=== PATIENT | female | born 1990 | race Caucasian/White ===

== ENCOUNTER 2017-07-12 04:40 | Emergency (ER) | payer OTHER ==
[2017-07-12] MEDS ORDERED: NS 1,000 ML IV ONE (04:51)
--- NOTE | 2017-07-12 04:51 | EDPHY ---
H & P Stated Complaint: RLQ abd pain started at 0300 Time Seen by Provider: 07/12/17 04:51 HPI/ROS: HPI CHIEF COMPLAINT: Right-sided abdominal pain HISTORY OF PRESENT ILLNESS: Patient is a 27-year-old female denies any significant medical history she presents emergency room with right-sided abdominal pain this woke her up from sleep around 3:00 a.m.. States she had the urge to go urinate she urinated and then felt like she had urinate again. She had sudden-onset severe sharp stabbing pain in her right lower quadrant. She states it does radiate to right CVA little bit. She had nausea with 1 episode of vomiting. She also states she had some watery diarrhea. 1 episode. Denies any chest pain or shortness of breath. Denies fever. Denies being . Current pain level 8/10. Right-sided. Past Medical History: Denies medical history Past Surgical History: Denies surgical history Social History: Denies daily use drugs alcohol tobacco. Family History: Noncontributory ROS REVIEW OF SYSTEMS: A comprehensive 10 point review of systems is otherwise negative aside from elements mentioned in the history of present illness. Exam Constitutional pre appears nontoxic triage nursing summary reviewed, vital signs reviewed, awake/alert. Eyes normal conjunctivae and sclera, EOMI, PERRLA. HENT normal inspection, atraumatic, moist mucus membranes, no epistaxis, neck supple/ no meningismus, no raccoon eyes. Respiratory clear to auscultation bilaterally, normal breath sounds, no respiratory distress, no wheezing. Cardiovascular rate normal, regular rhythm, no murmur, no edema, distal pulses normal. Gastrointestinal mild tender palpation right lower quadrant no peritoneal signs , no adnexal pain, no rebound, no guarding, normal bowel sounds, no distension, no pulsatile mass. Genitourinary mild CVA tenderness on the right side Musculoskeletal no midline vertebral tenderness, full range of motion, no calf swelling, no tenderness of extremities, no meningismus, good pulses, neurovascularly intact. Skin pink, warm, & dry, no rash, skin atraumatic. Neurologic awake, alert and oriented x 3, AAOx3, moves all 4 extremities equally, motor intact, sensory intact, CN II-XII intact, normal cerebellar, normal vision, normal speech. Psychiatric normal mood/affect. Heme/Lymph/Immune no lymphadenopathy. Differential diagnosis includes but is not limited to and in no particular order : Bowel obstruction, appendicitis, gallbladder disease, diverticulitis, colitis , enteritis, perforated viscus, gastritis, GERD, esophagitis, urinary tract infection, pyelonephritis, kidney stones Medical Decision Making: Plan for this patient IV establishment IV fluid bolus , IV Dilaudid 1 mg for pain control, IV Zofran 4 mg for nausea, IV fluids, basic blood work, CT scan abdomen pelvis with IV contrast rule out appendicitis versus kidney stone. Re-evaluation: CT scan abdomen pelvis with IV contrast shows right-sided UVJ stone. Hydronephrosis present. Called to me by Dr. Batres. 0607: Patient re-evaluated has some ongoing pain. 15 mg IV Toradol ordered. Urinalysis still pending. 0629: Patient re-evaluated she is much more comfortable nail. She received 1 L normal saline, additionally received Toradol, and IV Dilaudid. Pain well controlled. She is no longer vomiting. Pending a urinalysis. CT scan shows right-sided small 3 mm UVJ stone. Return precautions discussed with her she understands return emergency room she develops worsening abdominal pain fever vomiting flank pain questions or concerns. Understands drink lots of fluids stay well-hydrated Return if worsening pain fever vomiting Urology referral given. Source: Patient - Personal History LMP (Females 10-55): 15-21 Days Ago Current Tetanus/Diphtheria Vaccine: No Current Tetanus Diphtheria and Acellular Pertussis (TDAP): No - Medical/Surgical History Hx Asthma: No Hx Chronic Respiratory Disease: No Hx Diabetes: No Hx Cardiac Disease: No Hx Renal Disease: No Hx Cirrhosis: No Hx Alcoholism: No Hx HIV/AIDS: No Hx Splenectomy or Spleen Trauma: No Other PMH: left elbow surgery - Social History Smoking Status: Never smoked Constitutional: Initial Vital Signs Temperature (C) 36.7 C 07/12/17 04:41 Heart Rate 75 07/12/17 04:41 Respiratory Rate 18 07/12/17 04:41 Blood Pressure 95/58 L 07/12/17 04:41 O2 Sat (%) 99 07/12/17 04:41 O2 (L/minute) 2 Allergies/Adverse Reactions: acetaminophen [From Vicodin] Allergy (Verified 07/12/17 04:45) hydrocodone [From Vicodin] Allergy (Verified 07/12/17 04:45) Home Medications: Medication Instructions Recorded Ondansetron HCl [Zofran] 4 mg PO Q4-6PRN PRN #10 tablet 07/12/17 Tamsulosin HCl [Flomax] 0.4 mg PO DAILY #10 cap 07/12/17 oxyCODONE HCL/ACETAMINOPHEN 1 each PO BID #10 tablet 07/12/17 [Percocet 5-325 mg Tablet] Medical Decision Making - Data Points Laboratory Results: Laboratory Results 07/12/17 04:58 07/12/17 04:58 07/12/17 07/12/17 07/12/17 06:15 05:00 04:58 WBC RBC Hgb POC Hgb 12.9 gm/dL gm/dL (12.6-16.3) Hct POC Hct 38 % % (38-47) MCV MCH MCHC RDW Plt Count MPV Neut % (Auto) Lymph % (Auto) [place] % (Auto) Eos % (Auto) Baso % (Auto) Nucleat RBC Rel Count Absolute Neuts (auto) Absolute Lymphs (auto) Absolute Monos (auto) Absolute Eos (auto) Absolute Basos (auto) Absolute Nucleated RBC Immature Gran % Immature Gran # VBG Lactic Acid POC Sodium 141 mEq/L mEq/L (135-145) Sodium POC Potassium 3.7 mEq/L mEq/L (3.3-5.0) Potassium POC Chloride 103 mEq/L mEq/L (97-110) Chloride Carbon Dioxide Anion Gap POC BUN 7 mg/dL mg/dL (7-23) BUN Creatinine POC Creatinine 0.7 mg/dL mg/dL (0.6-1.0) Estimated GFR Glucose POC Glucose 132 mg/dL H mg/dL (70-100) Calcium Total Bilirubin Conjugated Bilirubin Unconjugated Bilirubin AST ALT Alkaline Phosphatase Total Protein Albumin Lipase Beta HCG, Qual NEGATIVE Urine Color Pending Urine Appearance Pending Urine pH Pending Ur Specific [place] Pending Urine Protein Pending Urine Ketones Pending Urine Blood Pending Urine Nitrate Pending Urine Bilirubin Pending Urine Urobilinogen Pending Ur Leukocyte Esterase Pending Urine Glucose Pending 07/12/17 07/12/17 07/12/17 04:58 04:58 04:55 WBC 6.57 10^3/uL 10^3/uL (3.80-9.50) RBC 4.10 10^6/uL L 10^6/uL (4.18-5.33) Hgb 13.3 g/dL g/dL (12.6-16.3) POC Hgb Hct 37.6 % L % (38.0-47.0) POC Hct MCV 91.7 fL fL (81.5-99.8) MCH 32.4 pg pg (27.9-34.1) MCHC 35.4 g/dL g/dL (32.4-36.7) RDW 11.3 % L % (11.5-15.2) Plt Count 209 10^3/uL 10^3/uL (150-400) MPV 9.1 fL fL (8.7-11.7) Neut % (Auto) 55.5 % % (39.3-74.2) Lymph % (Auto) 38.5 % % (15.0-45.0) [place] % (Auto) 4.6 % % (4.5-13.0) Eos % (Auto) 0.6 % % (0.6-7.6) Baso % (Auto) 0.5 % % (0.3-1.7) Nucleat RBC Rel Count 0.0 % % (0.0-0.2) Absolute Neuts (auto) 3.65 10^3/uL 10^3/uL (1.70-6.50) Absolute Lymphs (auto) 2.53 10^3/uL 10^3/uL (1.00-3.00) Absolute Monos (auto) 0.30 10^3/uL 10^3/uL (0.30-0.80) Absolute Eos (auto) 0.04 10^3/uL 10^3/uL (0.03-0.40) Absolute Basos (auto) 0.03 10^3/uL 10^3/uL (0.02-0.10) Absolute Nucleated RBC 0.00 10^3/uL 10^3/uL (0-0.01) Immature Gran % 0.3 % % (0.0-1.1) Immature Gran # 0.02 10^3/uL 10^3/uL (0.00-0.10) VBG Lactic Acid 1.5 mmol/L mmol/L (0.7-2.1) POC Sodium Sodium 141 mEq/L mEq/L (135-145) POC Potassium Potassium 4.0 mEq/L mEq/L (3.5-5.2) POC Chloride Chloride 105 mEq/L mEq/L (97-110) Carbon Dioxide 24 mEq/l mEq/l (22-31) Anion Gap 12 mEq/L mEq/L (8-16) POC BUN BUN 9 mg/dL mg/dL (7-23) Creatinine 0.8 mg/dL mg/dL (0.6-1.0) POC Creatinine Estimated GFR > 60 Glucose 123 mg/dL H mg/dL (70-100) POC Glucose Calcium 9.0 mg/dL mg/dL (8.5-10.4) Total Bilirubin 0.9 mg/dL mg/dL (0.1-1.4) Conjugated Bilirubin 0.5 mg/dL mg/dL (0.0-0.5) Unconjugated Bilirubin 0.4 mg/dL mg/dL (0.0-1.1) AST 21 IU/L IU/L (14-46) ALT 34 IU/L IU/L (9-52) Alkaline Phosphatase 45 IU/L IU/L (38-126) Total Protein 6.9 g/dL g/dL (6.3-8.2) Albumin 4.0 g/dL g/dL (3.5-5.0) Lipase 27 IU/L IU/L (23-300) Beta HCG, Qual Urine Color Urine Appearance Urine pH Ur Specific [place] Urine Protein Urine Ketones Urine Blood Urine Nitrate Urine Bilirubin Urine Urobilinogen Ur Leukocyte Esterase Urine Glucose Medications Given: Discontinued Medications Hydromorphone HCl (Dilaudid) 1 mg IVP EDNOW ONE Stop: 07/12/17 04:56 Last Admin: 07/12/17 05:06 Dose: 1 mg Sodium Chloride (Ns) 1,000 mls @ 0 mls/hr IV EDNOW ONE; Wide Open PRN Reason: Protocol Stop: 07/12/17 04:52 Last Admin: 07/12/17 05:05 Dose: 1,000 mls Ketorolac Tromethamine (Toradol) 15 mg IVP EDNOW ONE Stop: 07/12/17 06:00 Last Admin: 07/12/17 06:01 Dose: 15 mg Ondansetron HCl (Zofran) 4 mg IVP EDNOW ONE Stop: 07/12/17 04:56 Last Admin: 07/12/17 05:06 Dose: 4 mg Point of Care Test Results: 07/12/17 05:00 POC Sodium 141 POC Potassium 3.7 POC Chloride 103 POC BUN 7 POC Creatinine 0.7 POC Glucose 132 H Departure - Departure Disposition: Home, Routine, Self-Care Clinical Impression: Kidney stone Condition: Good Instructions: Kidney Stones (ED), Renal Colic (ED), Flank Pain (ED) Additional Instructions: 1. Drink lots of fluids stay well-hydrated. 2. Return emergency room if develops worsening abdominal pain flank pain fever vomiting. Referrals: BLANCA REES [Primary Care Provider] - As per Instructions Master Becker MD [Medical Doctor] - As per Instructions Prescriptions: Ondansetron HCl [Zofran] 4 mg PO Q4-6PRN PRN #10 tablet PRN Reason: Nausea/Vomiting, Use 1st oxyCODONE HCL/ACETAMINOPHEN [Percocet 5-325 mg Tablet] 1 each PO BID #10 tablet Tamsulosin HCl [Flomax] 0.4 mg PO DAILY #10 cap
[2017-07-12] MEDS ORDERED: HYDROmorphONE/DILAUDID 2 MG/ML INJ IVP ONE (04:55)
[2017-07-12] MEDS ORDERED: ONDANSETRON 4 MG/2 ML VIAL IVP ONE (04:55)
[2017-07-12 05:06] LABS: PLATELET COUNT 209 10^3/uL (150-400)
[2017-07-12] MEDS ORDERED: IOPAMIDOL (ISOVUE-300) 100 ML BTL ONE (05:29)
[2017-07-12] MEDS ORDERED: KETOROLAC 15 MG/1 ML SDV IVP ONE (05:59)
[2017-07-12] MEDS ORDERED: KETOROLAC 15 MG/1 ML SDV ONE (06:00)
[2017-07-12 07:02] VITALS: BP 104/58
== END 2017-07-12 07:02 | disposition home or self-care (01) ==
DX: N20.0 Calculus of kidney (principal); E86.9 Volume depletion, unspecified
CPT/HCPCS: 82947-QW; 96374; J1170; J1885; J2405; Q9967